=== PATIENT | female | born 1965 | race Two or more races ===

== ENCOUNTER 2025-05-29 13:45 | Emergency (ER) | payer MEDICAID, SELFPAY ==
[2025-05-29 14:47] VITALS: BP 179/91; PULSE 60; RESP 18; TEMP 36.8; O2SAT 95; BMI 27.1
--- NOTE | 2025-05-29 14:50 | PD.EDANIML ---
ED Animal Bite RME/HPI General Chief Complaint: Animal Bite Stated Complaint: DOG BITE TO RIGHT HAND Time Seen by Provider: 05/29/25 13:47 Arrival date/time: 05/29/25 13:45 59-year-old female presents to the Emergency Department today stating that she was bitten by her neighbors dog today does report she made a report Limitations: no limitations Related Data Previous Rx's ?Medication ?Instructions ?Recorded acetaminophen 500 mg capsule 1,000 mg (2 x 500 mg) PO Q8HR PRN 05/29/25 pain #30 caps amoxicillin 875 mg-potassium 1 tab PO BID 7 days #14 tabs 05/29/25 clavulanate 125 mg tablet bacitracin 500 unit/gram topical 1 applic topical TID 7 days #28.4 05/29/25 ointment grams Allergies Allergy/AdvReac Type Severity Reaction Status Date / Time ibuprofen Allergy Mild DIZZINES Verified 05/29/25 13:49 Review of Systems Review of Systems Systems Reviewed: All systems reviewed, normal except as documented Constitutional Constitutional: Reports system reviewed and no additional complaints, except as documented, Denies fever(s) and Denies headache(s) Eyes Eyes: Reports system reviewed and no additional complaints, except as documented and Denies blurry vision ENT Ears, Nose, Mouth, and Throat: Reports system reviewed and no additional complaints, except as documented, Denies headache(s), Denies nasal congestion and Denies nasal discharge Cardiovascular Cardiovascular: Reports system reviewed and no additional complaints, except as documented, Denies chest pain and Denies dyspnea Respiratory Respiratory: Reports system reviewed and no additional complaints, except as documented, Denies chest congestion, Denies cough and Denies dyspnea Gastrointestinal Gastrointestinal: Reports system reviewed and no additional complaints, except as documented and Denies abdominal pain Integumentary/Breasts Skin/Breast: Reports system reviewed and no additional complaints, except as documented, Denies rash and Reports wounds (Bite right hand) Neurologic Neurologic: Reports system reviewed and no additional complaints, except as documented, Reports as per HPI and Denies headache(s) Past Medical History Social History SMOKING STATUS: Never smoker ED Exam General Limitations: Present no limitations General appearance: Present alert and in no apparent distress Head Head exam: Present atraumatic, normocephalic and normal inspection Eye Eye exam: Present normal appearance, PERRL and EOMI ENT ENT exam: Present normal exam, normal oropharynx and mucous membranes moist Neck Neck exam: Present normal inspection, full ROM and trachea midline Chest Chest inspection: Present normal inspection and symmetric chest wall rise Respiratory Respiratory exam: Present normal lung sounds bilaterally Cardiovascular Cardiovascular exam: Present regular rate, normal rhythm and normal heart sounds Abdominal Exam Abdominal exam: Present soft and normal bowel sounds; Absent distention, tenderness, guarding or rebound Extremities Exam Extremities exam: Present normal inspection and full ROM Back Exam Back exam: Present normal inspection and full ROM Neurological Exam Neurological exam: Present alert, oriented X3, CN II-XII intact, normal gait and reflexes normal; Absent motor sensory deficit Psychiatric Psychiatric exam: Present normal affect and normal mood Skin Skin exam: Present warm, dry and other (Dog bite right hand puncture wounds dorsal aspect) Course Quality Measures none Orders Category Date Time Status Wound Care NOW Care 05/29/25 14:51 Active Acetaminophen Tab [Tylenol Tab] Med 05/29/25 14:50 Discontinued 650 mg PO X1 ONE Amoxicillin/Pot Clav 875 [Augmentin 875] Med 05/29/25 14:50 Discontinued 1 tab PO X1 ONE TET,DIP/PERT AC (Adult)-Tdap [Boostrix Adult (Tdap) Med 05/29/25 14:50 Discontinued Vacc] 0.5 ml IMI .ONCE ONE Vital Signs Vital signs: Vital Signs Temperature 98.2 F 05/29/25 14:47 Pulse Rate 60 05/29/25 14:47 Respiratory Rate 18 05/29/25 14:47 Blood Pressure 179/91 H 05/29/25 14:47 Pulse Oximetry (%) 95 05/29/25 14:47 Oxygen Delivery Method Room Air 05/29/25 14:47 O2 saturation 95% room air within normal limits Animal Bite MDM Narrative MDM Narrative:: 59-year-old female presents to the Emergency Department today stating that she was bitten by her neighbors dog today does report she made a report On exam patient well-appearing does not appear ill or toxic On exam patient has small puncture wounds to the right hand patient does have full range of motion no evidence of tendon or ligamentous injury Patient given first dose of antibiotics here as well as pain medication tetanus vaccine Patient discharged home in no distress to follow-up with primary care doctor in the next 24 to 48 hours and for any worsening symptoms to return to the ER immediately Patient data External records reviewed:: [facility] previous records Clinical information provided by:: patient Social determinants that could affect healthcare access:: none Patient has the following chronic illnesses:: See history How is presenting disease/condition affected by chronic disease/condition?: uneffected by Evaluation data The following diagnostics were reviewed and interpreted by me:: other (specify) (N/A) Lab and/or radiology exams considered but not ordered:: Considered not ordered Interpretation Summary: N/A Medications / Prescriptions Medications or Prescriptions considered but not ordered:: Given Medication administrations:: Medication Administration History Discontinued Medications Acetaminophen (Acetaminophen 325 Mg Tablet) 650 mg PO X1 ONE Stop: 05/29/25 14:51 Amoxicillin/Clavulanate Potassium (Amoxicillin/Pot Clav 875 Tablet) 1 tab PO X1 ONE Stop: 05/29/25 14:51 Diphtheria/Tetanus/Acell Pertussis (Diphth,Pertuss(Acell),Tet Vac 0.5 Ml Syr- Adult) 0.5 ml IMi .ONCE ONE Stop: 05/29/25 14:51 Given Consultations Consultation(s) initiated? (list below): No Diagnosis Differential diagnosis animal bite: bite by animal and dog bite Most likely diagnosis given after review of the tests above:: Dog bite Admission Indicated Admission indicated?: not indicated Admission Request Was there a request for admission?: No Disposition Plan Disposition Plan: Discharge Discharge Attestation Discharge Attestation: The patient and all family members were given an opportunity to ask questions and understood the discharge instructions. Discharge instructions specifically effects, indications for sooner follow up or return to the emergency department, and the expected course of current diagnosis. Patient condition: Stable Discharge Plan Plan Patient Disposition: HOME (Self Care) Discharge Disposition comment: Stable Prescriptions/Referrals Prescriptions/Med Rec: New bacitracin 500 unit/gram ointment 1 applic topical TID 7 Days Qty: 28.4 0RF acetaminophen 500 mg capsule 1,000 mg PO Q8HR PRN (Reason: pain) Qty: 30 0RF amoxicillin-pot clavulanate 875-125 mg tablet 1 tab PO BID 7 Days Qty: 14 0RF Problem List Clinical Impression: Dog bite of right hand Patient/Caregiver Discharge Instructions Education Materials: ED Dog Bite Additional Instructions: Please follow up with your primary care doctor in the next 24-48hrs for any worsening symptoms return here immediately Print Language: [place] Stand Alone Forms: Erin Award Info., Patient Portal Info Letter PA/PRIMARY SPECIAL EDUCATOR Supervising Physician ANGEL/PRIMARY SPECIAL EDUCATOR Supervising Physician:
[2025-05-29] MEDS: DIPHTH,PERTUSS(ACELL),TET VAC 0.5 ML SYR- ADULT IMi (15:01)
[2025-05-29] MEDS: ACETAMINOPHEN 325 MG TABLET 650 MG PO (15:06)
[2025-05-29] MEDS: AMOXICILLIN/POT CLAV 875 TABLET 1 TAB PO (15:07)
== END 2025-05-29 15:44 | disposition home or self-care (01) ==
LOC: SERX 15:29
PROVIDERS: Emergency Provider Nurse Practitioner Primary Care; PCP Preventive Medicine Occupational Medicine
DX: S61.431A Puncture wound without foreign body of right hand, initial encounter (principal); W54.0XXA Bitten by dog, initial encounter; Z23 Encounter for immunization
CPT/HCPCS: 90471; 90715; 99281; A9270